=== PATIENT | male | born 1955 | race Caucasian/White ===

== ENCOUNTER 2019-04-29 05:57 | Day surgery (SDC) | payer MEDICARE ==
--- NOTE | 2019-04-27 14:14 | HP ---
DATE OF SURGERY: 04/29/2019 ANTICIPATED PROCEDURE: Screening, greater than ten years. HISTORY OF PRESENT ILLNESS: PAST MEDICAL HISTORY: ALLERGIES: PER CHART. MEDICATIONS: Per the chart. PAST SURGICAL HISTORY: None recent. SOCIAL HISTORY: Negative. FAMILY HISTORY: Negative. REVIEW OF SYSTEMS: CVS: Negative. PULMONARY: Negative. PHYSICAL EXAMINATION: VITAL SIGNS: Normal. CHEST: Clear. COR: Regular. ABDOMEN: Satisfactory. IMPRESSION: Greater than ten years. PLAN: Colonoscopy.
[2019-04-29] MEDS ORDERED: Lactated Ringers 1,000 ML IV ONE (06:28)
[2019-04-29] MEDS ORDERED: Lactated Ringers 1,000 ML IV SCH (06:30)
[2019-04-29] MEDS ORDERED: Ketamine HCl 50 MG/ML ONE (08:56)
[2019-04-29] MEDS ORDERED: DIPRIVAN 200 MG/20 ML IV ONE (08:56)
[2019-04-29 10:16] VITALS: BP 160/96; PULSE 74; O2SAT 94
--- NOTE | 2019-04-29 10:59 | OP ---
SURGERY DATE/TIME: 04/29/2019 0855 PREOPERATIVE DIAGNOSIS: Screening. POSTOPERATIVE DIAGNOSIS: Basically normal. PROCEDURE: Colonoscopy. SURGEON: Mc Wiggins M.D. ANESTHESIA: MAC. INDICATION: He has mild diverticulosis of the sigmoid. He has moderate internal hemorrhoids. Anticipated rescope in five years. He did have a large prostate. DESCRIPTION OF PROCEDURE: Patient taken to endoscopy. Left lateral decubitus position. Digital examination quite pronounced. Prostate possible nodule. Scope is advanced. Scope advanced to the cecum, base of cecum, ileocecal valve normal. Ascending, hepatic, transverse, splenic, descending. Moderate diverticulosis sigmoid. Moderate internal hemorrhoids. No mucosal lesions. Follow up in five years. I would suggest that he see a urologist for his prostate.
== END 2019-04-29 10:10 | disposition home or self-care (01) ==
LOC: SDC 05:57
PROVIDERS: ATTEND Surgery
DX: Z12.11 Encounter for screening for malignant neoplasm of colon (principal); K57.30 Diverticulosis of large intestine without perforation or abscess without bleeding; K64.8 Other hemorrhoids; N40.0 Benign prostatic hyperplasia without lower urinary tract symptoms; E11.9 Type 2 diabetes mellitus without complications; I10 Essential (primary) hypertension; E78.5 Hyperlipidemia, unspecified; Z79.899 Other long term (current) drug therapy
CPT/HCPCS: 36415; 82962; 84153; G0121; J2704